=== PATIENT | female | born 1990 | race Caucasian/White ===

== ENCOUNTER 2017-01-30 12:39 | Emergency (ER) | payer SELFPAY ==
[2017-01-30 14:13] VITALS: BP 127/79
--- NOTE | 2017-01-30 14:15 | UC ---
Eye Complaint HPI - HPI Summary HPI Summary: 26 y/o female presents to the urgent care c/o b/l eye redness with yellowish crusting discharge in the morning for the past 3 days. Pt reports she has had a cold for the past 2 weeks, with mild nonproductive cough, nasal congestion and yellowish discharge. She also states she was exposed to someone at work who has pink eye. Pt denies MÉNDEZ, fever, SOB, visual disturbances, chest pain , N/ V/D. - History of Current Complaint Stated Complaint: EYE COMPLAINT Time Seen by Provider: 01/30/17 14:03 Hx Obtained From: Patient Hx Last Menstrual Period: 06/30/15 ?: No Onset/Duration: Sudden Onset, Lasting Days, Still Present Timing: Constant Severity Initially: Mild Severity Currently: Moderate Pain Intensity: 0 Pain Scale Used: 0-10 Numeric Location of Injury: Conjunctiva - redenes with yellowish discharge. in both eyes Aggravating Factor(s): Nothing Alleviating Factor(s): Nothing Associated Signs And Symptoms: Positive: Drainage (Purulent) - yellowish - Risk Factors Penetrating Injury Risk Factor: Negative Acute Glaucoma Risk Factors: Negative Optic Artery Occlusion Risk Factors: Negative - Allergies/Home Medications Allergies/Adverse Reactions: Allergies Allergy/AdvReac Type Severity Reaction Status Date / Time No Known Allergies Allergy Verified 01/30/17 14:13 Home Medications: Home Medications Ibuprofen TAB* [Motrin TAB* 600 MG] 600 mg PO Q8H PRN 01/30/17 [History Confirmed 01/30/17] O C 1 tab PO QAM 01/30/17 [History Confirmed 01/30/17] PMH/Surg Hx/FS Hx/Imm Hx Previously Healthy: Yes - Surgical History Surgical History: Yes Surgery Procedure, Year, and Place: CORRECTIVE EYE SURGERY A CHILD - Family History Known Family History: Positive: Hypertension, Other Family History: Breast cancer - Social History Occupation: Unemployed Lives: With Family Alcohol Use: Rare Substance Use Type: None Smoking Status (MU): Light Every Day Tobacco Smoker Type: Cigarettes Amount Used/How Often: 1/2 PPD Length of Time of Smoking/Using Tobacco: 7 yrs Have You Smoked in the Last Year: Yes Household Exposure Type: Cigarettes - Immunization History Most Recent Influenza Vaccination: no Review of Systems Constitutional: Negative Skin: Negative Eyes: Eye Redness - B/L ENT: Nasal Discharge - yellowish discharge Respiratory: Cough - dry Cardiovascular: Negative Gastrointestinal: Negative Genitourinary: Negative Motor: Negative Neurovascular: Negative Musculoskeletal: Negative Neurological: Negative Psychological: Negative All Other Systems Reviewed And Are Negative: Yes Physical Exam Triage Information Reviewed: Yes Appearance: Well-Appearing, No Pain Distress, Well-Nourished, Thin Vital Signs Reviewed: Yes Eyes: Positive: Conjunctiva Inflamed - B/L eye with PERRLA, EOMI, Fundi grossly normal. B/L conjunctiva inflamed with mild yellowish eye discharge. ENT: Positive: Normal ENT inspection, Hearing grossly normal, Pharynx normal, TMs normal Dental Exam: Normal Neck exam: Normal Neck: Positive: Supple, Nontender, No Lymphadenopathy Respiratory Exam: Normal Respiratory: Positive: Chest non-tender, Lungs clear, Normal breath sounds Cardiovascular Exam: Normal Cardiovascular: Positive: RRR, No Murmur, Pulses Normal Abdominal Exam: Normal Abdomen Description: Positive: Nontender, No Organomegaly, Soft Bowel Sounds: Positive: Present Musculoskeletal Exam: Normal Musculoskeletal: Positive: Strength Intact, ROM Intact, No Edema Neurological Exam: Normal Psychological Exam: Normal Skin Exam: Normal Eye Complaint Course/Dx - Course Course Of Treatment: 26 y/o female c/o B/L eye with redness and yellowish discharge when she wakes up. Hx Obtained. PE abnormal finding:B/L eye with PERRLA, EOMI, Fundi grossly normal. B/L conjunctiva inflamed with mild yellowish eye discharge. Pt Rx ciprofloxacin opthalmic. Pt instructed on medication, advised hand washing to avoid spread. if not improvement to return to urgent care or f/u with PCP. Pt understood and agreed. - Differential Dx/Diagnosis Differential Diagnosis/HQI/PQRI: Conjunctivitis, Foreign Body, Periorbital Cellulitis, Orbital Cellulitis Provider Diagnoses: Bacterial conjunctivitis bilaterally Discharge - Discharge Plan Condition: Stable Disposition: HOME Prescriptions: Ciprofloxacin 0.3% OPTH.KECIA* [Cipro 0.3% Opth*] 2 drop BOTH EYES Q4H #1 btl Patient Education Materials: Conjunctivitis (ED) Referrals: Fox Zimmerman MD [Primary Care Provider] - Additional Instructions: Please apply medications as instructed, Continue hand washing to avoid spread. If you do not improve or if symptoms worsen after treatment you should either follow up with your PCP or return to the urgent care for further evaluation and treatment.
== END 2017-01-30 14:56 | disposition home or self-care (01) ==
LOC: UCCORT 12:39
DX: H10.023 Other mucopurulent conjunctivitis, bilateral (principal)
CPT/HCPCS: 99212; G0463

== ENCOUNTER 2017-03-31 09:35 | Emergency (ER) | payer OTHER ==
[2017-03-31 09:51] VITALS: BP 110/64
--- NOTE | 2017-03-31 10:53 | UC ---
Back Pain HPI - HPI Summary HPI Summary: Pt presents with c/o back pain that has been progressively getting worse over the last 7 days that radiates from "back of head to low back". Pt states that she has a history of "back problems" used to see a chiropractor "but can no longer afford it". Pt also reports, sore throat, bilateral ear ache and left eye "mejía spot" concerned about a stye in left eye. - History of Current Complaint Chief Complaint: UCBackPain Stated Complaint: EARS/THROAT/LOWER BACK PAIN/LEFT EYE COMPLAINT Time Seen by Provider: 03/31/17 10:05 Hx Obtained From: Patient Hx Last Menstrual Period: 03/05/17 ?: No Onset/Duration: Gradual Onset, Lasting Days - 7, Still Present Timing: Constant Severity Initially: Mild Severity Currently: Mild Back Pain: Is Discrete @ - spinal column/cervical to upper lumbar Character: Dull, Aching, Stiffness Aggravating: Movement Alleviating: Nothing Associated Signs And Symptoms: Positive: Negative - Allergies/Home Medications Allergies/Adverse Reactions: Allergies Allergy/AdvReac Type Severity Reaction Status Date / Time No Known Allergies Allergy Verified 03/31/17 09:52 PMH/Surg Hx/FS Hx/Imm Hx Previously Healthy: Yes - history of back pain - Surgical History Surgical History: Yes Surgery Procedure, Year, and Place: CORRECTIVE EYE SURGERY A CHILD - Family History Known Family History: Positive: Hypertension, Other Family History: Breast cancer - Social History Occupation: Employed Full-time Lives: With Family Alcohol Use: Rare Substance Use Type: None Smoking Status (MU): Light Every Day Tobacco Smoker Type: Cigarettes Amount Used/How Often: 1.5 PPD Length of Time of Smoking/Using Tobacco: 7 yrs Have You Smoked in the Last Year: Yes Household Exposure Type: Cigarettes - Immunization History Most Recent Influenza Vaccination: no Review of Systems Constitutional: Chills - this morning, Fatigue - reports significant family stress at home. Skin: Negative Eyes: Other - "mejía spot" inner corner left eye ENT: Sore Throat, Ear Ache - bilateral Respiratory: Negative Cardiovascular: Negative Gastrointestinal: Negative Genitourinary: Negative Motor: Decreased ROM - back Neurovascular: Negative Musculoskeletal: Arthralgia, Decreased ROM - back, Myalgia Neurological: Negative Psychological: Negative All Other Systems Reviewed And Are Negative: Yes Physical Exam Triage Information Reviewed: Yes Appearance: Other: - fatigued Vital Signs: Initial Vital Signs Temp 98.1 F 03/31/17 09:46 Pulse 95 03/31/17 09:46 Resp 14 03/31/17 09:46 BP 110/64 03/31/17 09:46 Pulse Ox 100 03/31/17 09:46 Vital Signs Reviewed: Yes Eye Exam: Normal Eyes: Positive: Other: - left medial corner of eye, sclera appears to be slightly mejía in color. No sign of trauma, irriation no erythema or discharge. No c/o pain or swelling ENT Exam: Other ENT: Positive: Tonsillar swelling, Tonsillar exudate Dental Exam: Normal Neck exam: Other Neck: Positive: Enlarged Nodes @ - bialteral submandibular, Other: - negative kernigs, Respiratory Exam: Normal Cardiovascular Exam: Normal Musculoskeletal Exam: Other Musculoskeletal: Positive: ROM Intact - cervical spine full ROm, Other: - c/o tenderness with palpation from upper cervical to upper lumbar Neurological Exam: Normal Psychological Exam: Normal Skin Exam: Normal Back Pain Course/Dx - Differential Dx/Diagnosis Differential Diagnosis/HQI/PQRI: Strain, Other - meningitis, stress related back pain, sore throat Provider Diagnoses: back pain. tonsillitis. ear ache- bilateral. normal eye exam bilateral Discharge - Discharge Plan Condition: Stable Disposition: HOME Prescriptions: Cyclobenzaprine TAB* [Flexeril 10 MG TAB*] 10 mg PO TID PRN #15 tab MDD 3 PRN Reason: Pain Ibuprofen TAB* [Motrin TAB* 800 MG] 800 mg PO Q8H #21 tab Patient Education Materials: Tonsillitis (ED), Earache (ED), Back Pain (ED) Referrals: Fox Zimmerman MD [Primary Care Provider] - As Soon As Possible (Please follow up with your PCP as soon as possible to continue with routine health maintenance and screening. ) Additional Instructions: Please note that if your symptoms worsen please seek care immediately at the closest healthcare facility.
== END 2017-03-31 11:00 | disposition home or self-care (01) ==
LOC: UCCORT 09:35
DX: M54.5 Low back pain (principal); J03.90 Acute tonsillitis, unspecified; H92.03 Otalgia, bilateral; R53.83 Other fatigue; F17.210 Nicotine dependence, cigarettes, uncomplicated
CPT/HCPCS: 87651; 99212; G0463

== ENCOUNTER 2017-06-02 12:57 | Emergency (ER) | payer OTHER ==
[2017-06-02 13:54] VITALS: BP 106/65
--- NOTE | 2017-06-02 14:18 | UC ---
Dental HPI - HPI Summary HPI Summary: THREE DAYS OF (#13) DENTAL SWELLING AND PAIN LEFT UPPER JAW. HAS APPOINTMENT WITH [facility] FOR NEXT WEEK. - History of Current Complaint Chief Complaint: UCDentalProblem Stated Complaint: INFECTED TOOTH Time Seen by Provider: 06/02/17 13:31 Hx Obtained From: Patient Hx Last Menstrual Period: 05/31/17 Onset/Duration: Gradual Onset, Lasting Days Severity: Moderate Pain Intensity: 7 Pain Scale Used: 0-10 Numeric Related History: Swelling - Allergies/Home Medications Allergies/Adverse Reactions: Allergies Allergy/AdvReac Type Severity Reaction Status Date / Time No Known Allergies Allergy Verified 06/02/17 13:51 Home Medications: Home Medications Norethindrone Acetate-Ethinyl [Lo Loestrin Fe 1 mg-10 Mcg / 10 Mcg] 1 tab PO DAILY 06/02/17 [History Confirmed 06/02/17] PMH/Surg Hx/FS Hx/Imm Hx Previously Healthy: Yes - Surgical History Surgical History: Yes Surgery Procedure, Year, and Place: CORRECTIVE EYE SURGERY A CHILD - Family History Known Family History: Positive: Hypertension, Other Family History: Breast cancer - Social History Occupation: Employed Full-time Lives: With Family Alcohol Use: Occasionally Substance Use Type: None Smoking Status (MU): Heavy Every Day Tobacco Smoker Type: Cigarettes Amount Used/How Often: 1.5 PPD Length of Time of Smoking/Using Tobacco: 7 yrs Have You Smoked in the Last Year: Yes Household Exposure Type: Cigarettes Cessation Counseling: Counseled 3+Min - 10 Min - Immunization History Most Recent Influenza Vaccination: no Review of Systems Constitutional: Negative Skin: Negative Eyes: Negative ENT: Dental Pain Respiratory: Negative Cardiovascular: Negative Gastrointestinal: Negative Genitourinary: Negative Motor: Negative Neurovascular: Negative Musculoskeletal: Negative Neurological: Negative Psychological: Negative Is Patient Immunocompromised?: No All Other Systems Reviewed And Are Negative: Yes Physical Exam Triage Information Reviewed: Yes Appearance: Well-Appearing, No Pain Distress, Well-Nourished, Thin Vital Signs: Initial Vital Signs Temp 97.9 F 06/02/17 13:48 Pulse 72 06/02/17 13:48 Resp 14 06/02/17 13:48 BP 106/65 06/02/17 13:48 Pulse Ox 99 06/02/17 13:48 Vital Signs Reviewed: Yes Eye Exam: Normal ENT Exam: Normal Dental: Positive: Percussion Tenderness @ - 13, Abscess @ - 13 Neck exam: Normal Neck: Positive: Supple, Nontender Respiratory Exam: Normal Respiratory: Positive: Chest non-tender, Lungs clear, Normal breath sounds, No respiratory distress Cardiovascular Exam: Normal Cardiovascular: Positive: RRR, No Murmur, Pulses Normal, Brisk Capillary Refill Abdominal Exam: Normal Musculoskeletal Exam: Normal Musculoskeletal: Positive: Strength Intact, ROM Intact Neurological Exam: Normal Psychological Exam: Normal Skin Exam: Normal Dental Complaint Course/Dx - Differential Dx/Diagnosis Differential Diagnosis/Dx: Dental Abscess, Dental Caries Provider Diagnoses: DENTAL ABSCESS #13 Discharge - Discharge Plan Condition: Stable Disposition: HOME Prescriptions: Amoxicillin/Clavulanate TAB* [Augmentin TAB 875*] 875 mg PO BID #20 tab Patient Education Materials: Dental Abscess (ED) Referrals: Fox Zimmerman MD [Primary Care Provider] - Images Dental: 1 - ABSCESS HERE
== END 2017-06-02 14:11 | disposition home or self-care (01) ==
LOC: UCCORT 12:57
DX: K04.7 Periapical abscess without sinus (principal); K02.9 Dental caries, unspecified; F17.210 Nicotine dependence, cigarettes, uncomplicated
CPT/HCPCS: 99212; G0463

== ENCOUNTER 2017-10-20 16:03 | Emergency (ER) | payer OTHER ==
[2017-10-20 16:25] VITALS: BP 117/77
--- NOTE | 2017-10-20 16:29 | UC ---
Throat Pain/Nasal Luis Angel HPI - HPI Summary HPI Summary: Pt c/o sudden onset sore throat. Pt's children both seen yesterday and both tested positive for strep. - History of Current Complaint Chief Complaint: UCRespiratory Stated Complaint: THROAT COMPLAINT Time Seen by Provider: 10/20/17 16:24 Hx Obtained From: Patient Hx Last Menstrual Period: 10/17/17 ?: No Onset/Duration: Sudden Onset, Lasting Days, Still Present Severity: Mild Pain Intensity: 0 Associated Signs & Symptoms: Positive: Dysphagia - Epiglottits Risk Factors Epiglottis Risk Factors: Sudden Onset - Allergies/Home Medications Allergies/Adverse Reactions: Allergies Allergy/AdvReac Type Severity Reaction Status Date / Time No Known Allergies Allergy Verified 10/20/17 16:21 Home Medications: Home Medications Varenicline (NF) [Chantix 1 MG TAB (NF)] 1 mg PO BID 10/20/17 [History Confirmed 10/20/17] PMH/Surg Hx/FS Hx/Imm Hx Previously Healthy: Yes - Surgical History Surgical History: Yes Surgery Procedure, Year, and Place: CORRECTIVE EYE SURGERY A CHILD - Family History Known Family History: Positive: Hypertension, Other Family History: Breast cancer - Social History Occupation: Employed Full-time Lives: With Family Alcohol Use: Occasionally Substance Use Type: None Smoking Status (MU): Former Smoker Type: Cigarettes Amount Used/How Often: 1.5 PPD Length of Time of Smoking/Using Tobacco: 7 yrs Have You Smoked in the Last Year: Yes Household Exposure Type: Cigarettes - Immunization History Most Recent Influenza Vaccination: no Review of Systems Constitutional: Fatigue Skin: Negative Eyes: Negative ENT: Sore Throat Respiratory: Negative Cardiovascular: Negative Gastrointestinal: Negative Genitourinary: Negative Motor: Negative Neurovascular: Negative Musculoskeletal: Negative Neurological: Headache Psychological: Negative Is Patient Immunocompromised?: No All Other Systems Reviewed And Are Negative: Yes Physical Exam Triage Information Reviewed: Yes Appearance: Ill-Appearing Vital Signs: Initial Vital Signs Temp 98.6 F 10/20/17 16:19 Pulse 66 10/20/17 16:19 Resp 16 10/20/17 16:19 BP 117/77 10/20/17 16:19 Pulse Ox 99 10/20/17 16:19 Eye Exam: Normal ENT: Positive: Pharyngeal erythema, Tonsillar swelling Dental Exam: Normal Neck exam: Normal Respiratory: Positive: No respiratory distress Musculoskeletal Exam: Normal Neurological Exam: Normal Psychological Exam: Normal Skin Exam: Normal Throat Pain/Nasal Course/Dx - Differential Dx/Diagnosis Differential Diagnosis/HQI/PQRI: Pharyngitis, Tonsillitis Provider Diagnoses: Pharyngitis Discharge - Discharge Plan Condition: Stable Disposition: HOME Prescriptions: Penicillin VK 500 MG TAB(NF) [Penicillin VK 500 mg Tab] 500 mg PO Q8H #30 tab Patient Education Materials: Pharyngitis (ED) Referrals: Fox Zimmerman MD [Primary Care Provider] -
== END 2017-10-20 16:35 | disposition home or self-care (01) ==
LOC: UCCORT 16:03
DX: J02.9 Acute pharyngitis, unspecified (principal); Z87.891 Personal history of nicotine dependence
CPT/HCPCS: 99212; G0463

== ENCOUNTER 2017-12-02 13:39 | Emergency (ER) | payer OTHER ==
[2017-12-02 15:25] VITALS: BP 121/66
--- NOTE | 2017-12-02 16:22 | UC ---
Throat Pain/Nasal Luis Angel HPI - HPI Summary HPI Summary: Initial cough and congestion for a week, with progressive sore throat, sweats. Two days of dysphagia, with pain in both ears. Cough is impoving. - History of Current Complaint Chief Complaint: UCGeneralIllness Stated Complaint: SORE THROAT Time Seen by Provider: 12/02/17 15:29 Hx Obtained From: Patient Hx Last Menstrual Period: 11/12/17 ?: No Onset/Duration: Gradual Onset, Lasting Days - 5 Severity: Moderate Pain Intensity: 9 Cough: Nonproductive Associated Signs & Symptoms: Positive: Dysphagia, Hoarseness - Epiglottits Risk Factors Epiglottis Risk Factors: Negative - Allergies/Home Medications Allergies/Adverse Reactions: Allergies Allergy/AdvReac Type Severity Reaction Status Date / Time No Known Allergies Allergy Verified 10/20/17 16:21 PMH/Surg Hx/FS Hx/Imm Hx Previously Healthy: Yes - Smokes regularly, recently started again following Chantix use. 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 Lives: With Family Alcohol Use: Occasionally Substance Use Type: None Smoking Status (MU): Heavy Every Day Tobacco Smoker Type: Cigarettes Amount Used/How Often: 1.5 PPD Length of Time of Smoking/Using Tobacco: 7 yrs Have You Smoked in the Last Year: Yes Household Exposure Type: Cigarettes - Immunization History Most Recent Influenza Vaccination: no Review of Systems Constitutional: Fever, Fatigue Skin: Negative Eyes: Negative ENT: Sore Throat, Ear Ache Respiratory: Cough, Other - reviewed repeated efforts at smokestopping. Cardiovascular: Negative Gastrointestinal: Negative Genitourinary: Negative Motor: Negative Neurovascular: Negative Musculoskeletal: Negative Neurological: Negative Psychological: Negative Is Patient Immunocompromised?: No All Other Systems Reviewed And Are Negative: Yes Physical Exam Triage Information Reviewed: Yes Appearance: Ill-Appearing, Pain Distress - moderate. Vital Signs: Initial Vital Signs Temp 99.5 F 12/02/17 15:20 Pulse 105 12/02/17 15:20 Resp 17 12/02/17 15:20 BP 121/66 12/02/17 15:20 Pulse Ox 99 12/02/17 15:20 Eyes: Positive: Conjunctiva Clear ENT: Positive: TMs normal, Tonsillar swelling, Tonsillar exudate, Hoarse voice Neck: Positive: Supple, Nontender, Enlarged Nodes @ - tonsillar nodes enlarged. Respiratory: Positive: Lungs clear, Normal breath sounds Cardiovascular: Positive: RRR, No Murmur Musculoskeletal Exam: Normal Neurological Exam: Normal Psychological Exam: Normal Skin Exam: Normal Throat Pain/Nasal Course/Dx - Course Course Of Treatment: amoxicillin for tonsillitis - Differential Dx/Diagnosis Differential Diagnosis/HQI/PQRI: Laryngitis, Pharyngitis, Tonsillitis, URI Provider Diagnoses: bilateral tonsillitis Discharge - Sign-Out/Discharge Documenting (check all that apply): Discharge - Discharge Plan Condition: Stable Disposition: HOME Prescriptions: Amoxicillin PO (*) [Amoxicillin 875 MG (*)] 875 mg PO BID #20 tab Patient Education Materials: Tonsillitis (ED) Referrals: Fox Zimmerman MD [Primary Care Provider] - Additional Instructions: Begin amoxicillin for treatment of tonsillitis. Although the rapid strep is negative, this appears to be a bacterial tonsillitis. Use ibuprofen 600mg three times daily for pain, and use warm water and salt gargles for relief of pain. - Billing Disposition and Condition Condition: STABLE Disposition: HOME
== END 2017-12-02 16:35 | disposition home or self-care (01) ==
LOC: UCCORT 13:39
DX: J03.90 Acute tonsillitis, unspecified (principal); F17.210 Nicotine dependence, cigarettes, uncomplicated
CPT/HCPCS: 87651; 99212; G0463

== ENCOUNTER 2018-08-28 16:15 | Emergency (ER) | payer OTHER ==
[2018-08-28 16:55] VITALS: BP 121/65
--- NOTE | 2018-08-28 17:02 | UC ---
Eye Complaint HPI - HPI Summary HPI Summary: 27-year-old female comes in with a chief complaint of eye drainage. Been going on for several days. Some upper respiratory tract infection symptoms. When she wakes up the crusting in the eyes is the worst when she cleans it off that improves it. No trauma does not wear contacts. - History of Current Complaint Chief Complaint: UCEye Stated Complaint: EYE CONCERN Time Seen by Provider: 08/28/18 16:54 Hx Last Menstrual Period: 08/13/18 Pain Intensity: 0 - Allergies/Home Medications Allergies/Adverse Reactions: Allergies Allergy/AdvReac Type Severity Reaction Status Date / Time No Known Allergies Allergy Verified 08/28/18 16:55 PMH/Surg Hx/FS Hx/Imm Hx Previously Healthy: Yes - Surgical History Surgical History: Yes Surgery Procedure, Year, and Place: CORRECTIVE EYE SURGERY A CHILD - Family History Known Family History: Positive: Hypertension, Other Family History: Breast cancer - Social History Alcohol Use: Occasionally Substance Use Type: None Smoking Status (MU): Heavy Every Day Tobacco Smoker Type: Cigarettes Amount Used/How Often: 1.5 PPD Length of Time of Smoking/Using Tobacco: 7 yrs Have You Smoked in the Last Year: Yes Household Exposure Type: Cigarettes - Immunization History Most Recent Influenza Vaccination: no Review of Systems All Other Systems Reviewed And Are Negative: Yes Constitutional: Positive: Negative Skin: Positive: Negative Eyes: Positive: Drainage, Eye Redness ENT: Positive: Nasal Discharge Respiratory: Positive: Negative Cardiovascular: Positive: Negative Gastrointestinal: Positive: Negative Motor: Positive: Negative Neurovascular: Positive: Negative Musculoskeletal: Positive: Negative Neurological: Positive: Negative Psychological: Positive: Negative Is Patient Immunocompromised?: No Physical Exam Triage Information Reviewed: Yes Appearance: Well-Appearing, No Pain Distress, Well-Nourished Vital Signs: Initial Vital Signs Temp 99 F 08/28/18 16:52 Pulse 102 08/28/18 16:52 Resp 17 08/28/18 16:52 BP 121/65 08/28/18 16:52 Pulse Ox 99 08/28/18 16:52 Vital Signs Reviewed: Yes Eyes: Positive: Conjunctiva Inflamed, Discharge ENT: Positive: Pharynx normal, Nasal congestion, TMs normal Neck exam: Normal Neck: Positive: Supple Respiratory: Positive: Lungs clear, Normal breath sounds, No respiratory distress Cardiovascular: Positive: RRR Musculoskeletal Exam: Normal Musculoskeletal: Positive: Strength Intact, ROM Intact Neurological Exam: Normal Neurological: Positive: Alert, Muscle Tone Normal Psychological Exam: Normal Psychological: Positive: Age Appropriate Behavior Skin Exam: Normal Eye Complaint Course/Dx - Differential Dx/Diagnosis Provider Diagnosis: Conjunctivitis Discharge - Sign-Out/Discharge Documenting (check all that apply): Patient Departure All imaging exams completed and their final reports reviewed: No Studies - Discharge Plan Condition: Stable Disposition: HOME Prescriptions: Tobramycin 0.3% OPHTH.KECIA* 1 drop BOTH EYES Q4H #1 btl Patient Education Materials: Conjunctivitis (ED) Referrals: Fox Zimmerman MD [Primary Care Provider] - Additional Instructions: FOLLOW UP WITH YOUR DOCTOR IF NOT COMPLETELY IMPROVED. GET RECHECKED FOR ANY WORSENING OF YOUR CONDITION OR QUESTIONS OR CONCERNS. - Billing Disposition and Condition Condition: STABLE Disposition: Home
== END 2018-08-28 17:06 | disposition home or self-care (01) ==
LOC: UCCORT 16:15
DX: H10.9 Unspecified conjunctivitis (principal); F17.210 Nicotine dependence, cigarettes, uncomplicated
CPT/HCPCS: 99212; G0463

== ENCOUNTER 2018-12-03 18:39 | Emergency (ER) | payer OTHER ==
[2018-12-03 19:30] VITALS: BP 111/65
--- NOTE | 2018-12-03 19:49 | UC ---
General HPI - HPI Summary HPI Summary: runny nose, sore throat and dry cough x 2 days. no fever or sob. no hx asthma. + smoker and has occasional wheezing. - History of Current Complaint Chief Complaint: UCGeneralIllness Stated Complaint: SORE THROAT COUGH Time Seen by Provider: 12/03/18 19:43 Hx Obtained From: Patient Hx Last Menstrual Period: 08/13/18 Timing: Constant Pain Intensity: 4 Associated Signs & Symptoms: Negative: Chest Pain, Fever - Allergy/Home Medications Allergies/Adverse Reactions: Allergies Allergy/AdvReac Type Severity Reaction Status Date / Time No Known Allergies Allergy Verified 12/03/18 19:30 Home Medications: Home Medications Methylphenidate TAB* [Ritalin TAB*] 20 mg PO DAILY 12/03/18 [History Confirmed 12/03/18] PMH/Surg Hx/FS Hx/Imm Hx - Additional Past Medical History Additional PMH: ADD - Surgical History Surgical History: Yes Surgery Procedure, Year, and Place: CORRECTIVE EYE SURGERY A CHILD - Family History Known Family History: Positive: Hypertension, Other Family History: Breast cancer - Social History Alcohol Use: Occasionally Substance Use Type: None Smoking Status (MU): Heavy Every Day Tobacco Smoker Type: Cigarettes Amount Used/How Often: 1.5 PPD Length of Time of Smoking/Using Tobacco: 7 yrs Have You Smoked in the Last Year: Yes Household Exposure Type: Cigarettes - Immunization History Most Recent Influenza Vaccination: no Review of Systems All Other Systems Reviewed And Are Negative: Yes ENT: Positive: Sore Throat, Sinus Congestion Respiratory: Positive: Cough Physical Exam Triage Information Reviewed: Yes Appearance: Well-Appearing Vital Signs: Initial Vital Signs Temp 98.1 F 12/03/18 19:26 Pulse 81 12/03/18 19:26 Resp 16 12/03/18 19:26 BP 111/65 12/03/18 19:26 Pulse Ox 100 12/03/18 19:26 Vital Signs Reviewed: Yes Eyes: Positive: Conjunctiva Clear ENT: Positive: Pharyngeal erythema - slight, Nasal congestion, Nasal drainage - clear, TMs normal Neck: Positive: Supple, Nontender, No Lymphadenopathy Respiratory: Positive: Lungs clear, No respiratory distress, Decreased breath sounds Cardiovascular: Positive: RRR, No Murmur Abdomen Description: Positive: Nontender Musculoskeletal: Positive: ROM Intact Neurological: Positive: Alert Psychological: Positive: Age Appropriate Behavior Skin Exam: Normal Course/Dx - Course Course Of Treatment: DIAGNOSTIC= rapid strep is negative - Diagnoses Provider Diagnosis: URI (upper respiratory infection), Cough in adult Discharge - Sign-Out/Discharge Documenting (check all that apply): Patient Departure All imaging exams completed and their final reports reviewed: No Studies - Discharge Plan Condition: Stable Disposition: HOME Prescriptions: Benzonatate CAP* [Tessalon 100 MG CAP*] 100 mg PO TID PRN #10 cap PRN Reason: Cough Patient Education Materials: Upper Respiratory Infection (DC), Acute Cough (ED) Referrals: Fox Zimmerman MD [Primary Care Provider] - 5 Days Additional Instructions: USE THE ALBUTEROL INHALER 2 PUFFS EVERY 6 HOURS - Billing Disposition and Condition Condition: STABLE Disposition: Home - Attestation Statements Provider Attestation: I was available for consult. This patient was seen by the [facility]. The patient was not presented to, seen by, or examined by me. -Kristen
[2018-12-03] MEDS ORDERED: Albuterol HFA INHALER* 8 gm MDI INH ONE (20:04)
[2018-12-03] MEDS ORDERED: Benzonatate CAP* 100 MG PO ONE (20:05)
== END 2018-12-03 20:55 | disposition home or self-care (01) ==
LOC: UCCORT 18:39
DX: J06.9 Acute upper respiratory infection, unspecified (principal); R05 Cough; F98.8 Other specified behavioral and emotional disorders with onset usually occurring in childhood and adolescence; F17.210 Nicotine dependence, cigarettes, uncomplicated
CPT/HCPCS: 87651; 99213; A9270-GY; G0463

== ENCOUNTER 2019-02-11 20:49 | Emergency (ER) | payer OTHER ==
[2019-02-11 21:49] VITALS: BP 135/73
[2019-02-11] MEDS ORDERED: Azithromycin TAB* 250 MG PO ONE (21:56)
--- NOTE | 2019-02-11 22:05 | UC ---
Headache HPI - HPI Summary HPI Summary: HEADACHE FOR ONE WEEK, DIZZY, FATIUGE, WEAKNESS. STATES SHE FEELS PANICYAT TIMES. . BLURRED VISION ON AN OFF. STATES SHE DRINKS AT LEAST FOUR COFFEES A DAY. STATES SHE FEELS WORSE AFTER DRINKING COFFEE. HEADACHE IS GONE NOW - History Of Current Complaint Chief Complaint: UCHeadavioletta Stated Complaint: MIGRAINES/DIZZINESS x1 WEEK Time Seen by Provider: 02/11/19 21:34 Hx Obtained From: Patient Hx Last Menstrual Period: 01/23/19 ?: No Onset/Duration: Sudden Onset, Lasting Days Onset Of Symptoms: Gradual Initially Headache Was: Moderate Currently Pain Is: Mild Pain Intensity: 0 Character: Migraine Location of Headache: Frontal Associated Signs And Symptoms: Positive: Dizziness, Sinus Pressure - Allergies/Home Medications Allergies/Adverse Reactions: Allergies Allergy/AdvReac Type Severity Reaction Status Date / Time No Known Allergies Allergy Verified 02/11/19 21:41 PMH/Surg Hx/FS Hx/Imm Hx Previously Healthy: Yes - Surgical History Surgical History: Yes Surgery Procedure, Year, and Place: CORRECTIVE EYE SURGERY A CHILD - Family History Known Family History: Positive: Hypertension, Other Family History: Breast cancer - Social History Alcohol Use: Occasionally Substance Use Type: Excessive Caffeine Smoking Status (MU): Heavy Every Day Tobacco Smoker Type: Cigarettes Amount Used/How Often: 1.5 PPD Length of Time of Smoking/Using Tobacco: 7 yrs Have You Smoked in the Last Year: Yes Household Exposure Type: Cigarettes - Immunization History Most Recent Influenza Vaccination: no Review of Systems All Other Systems Reviewed And Are Negative: Yes ENT: Positive: Ear Ache, Nasal Discharge Neurological: Positive: Headache Physical Exam Triage Information Reviewed: Yes Appearance: Well-Nourished, Ill-Appearing, Pain Distress Vital Signs: Initial Vital Signs Temp 98 F 02/11/19 21:41 Pulse 82 02/11/19 21:41 Resp 18 02/11/19 21:41 BP 135/73 02/11/19 21:41 Pulse Ox 100 02/11/19 21:41 Vital Signs Reviewed: Yes Eye Exam: Normal ENT: Positive: Pharyngeal erythema - with PND, TM bulging, TM dull, Other - turbids inflammed bilaterally Dental Exam: Normal Neck exam: Normal Respiratory Exam: Normal Cardiovascular Exam: Normal Abdominal Exam: Normal Musculoskeletal Exam: Normal Neurological Exam: Normal Psychological Exam: Normal Skin Exam: Normal Headache Course/Dx - Course Course Of Treatment: hx obtained, exam performed, meds reviewed, migraines hav subsided, but signs of sinusitis persist, hx of tobacco use, - Differential Dx/Diagnosis Differential Diagnosis/HQI/PQRI: Migraine, Sinus Headache, Tension Headache Provider Diagnosis: Sinusitis Discharge - Sign-Out/Discharge Documenting (check all that apply): Patient Departure All imaging exams completed and their final reports reviewed: No Studies - Discharge Plan Condition: Stable Disposition: HOME Prescriptions: Azithromycin TAB* [Zithromax TAB (Z-MAREK) 250 mg #6 tabs] 250 mg PO DAILY #4 tab Patient Education Materials: Sinusitis (ED) Referrals: Fox Zimmerman MD [Primary Care Provider] - Additional Instructions: 1. take the medication as prescribed. 2 Use your nasal spray daily for the next two weeks 3. Increase water intake 4. Ibuprofen and migraine medication as needed. - Billing Disposition and Condition Condition: STABLE Disposition: Home - Attestation Statements Provider Attestation: Per institutional requirements, I have reviewed the chart, however, I was not consulted specifically or made aware of this patient by the midlevel provider. I did not personally evaluate, interact with , or disposition this patient.
== END 2019-02-11 22:10 | disposition home or self-care (01) ==
LOC: UCCORT 20:49
DX: J32.9 Chronic sinusitis, unspecified (principal); F17.210 Nicotine dependence, cigarettes, uncomplicated
CPT/HCPCS: 99212; A9270-GY; G0463